=== PATIENT | male | born 1960 | race Caucasian/White ===

== ENCOUNTER → 2016-04-07 | Outpatient (CLI) | payer BC ==
[2016-04-07 08:54] LABS: ABSOLUTE EOSINOPHILS # (AUTO) 0.1 10^3/uL (0.0-0.6); ABSOLUTE LYMPHOCYTES (AUTO) 1.2 10^3/uL (0.5-4.7); ABSOLUTE MONOCYTES (AUTO) 0.4 10^3/uL (0.1-1.4); ABSOLUTE NEUT (AUTO) 4.8 10^3/uL (1.7-8.2); BASOPHILS % (AUTO) 0.6 % (0-2); EOSINOPHILS % (AUTO) 2.1 % (0-6); HEMOGLOBIN 14.2 g/dL (13.5-17.0); HGB HCT DIFFERENCE 0.6; LYMPHOCYTES % (AUTO) 18.1 % (13-45); MEAN CORPUSCULAR HEMOGLOBIN 27.4 pg (27.0-33.4); MEAN CORPUSCULAR HGB CONC 33.7 g/dL (32.0-36.0); MEAN CORPUSCULAR VOLUME 81 fl (80-97); MONOCYTES % (AUTO) 6.2 % (3-13); RED BLOOD COUNT 5.17 10^6/uL (4.35-5.55); RED CELL DISTRIBUTION WIDTH 15.5 % (11.5-14.0); WHITE BLOOD COUNT 6.6 10^3/uL (4.0-10.5)
[2016-04-07 09:15] LABS: ALANINE AMINOTRANSFERASE 37 U/L (21-72); ALBUMIN 3.8 g/dL (3.5-5.0); ALKALINE PHOSPHATASE 63 U/L (38-126); ANION GAP 10 (5-19); ASPARTATE AMINO TRANSFERASE 30 U/L (17-59); BILIRUBIN,TOTAL 0.5 mg/dL (0.2-1.3); BLOOD UREA NITROGEN 27 mg/dL (7-20); CARBON DIOXIDE 25 mmol/L (22-30); CHLORIDE 100 mmol/L (98-107); CHOLESTEROL 210.62 mg/dL (0-200); CREATININE RESULT 1.15 mg/dL (0.52-1.25); Direct HDL 21 mg/dL (>40); GLUCOSE 257 mg/dL (75-110); POTASSIUM 4.7 mmol/L (3.6-5.0); SODIUM 135.3 mmol/L (137-145); TOTAL PROTEIN 7.8 g/dL (6.3-8.2)
[2016-04-07 09:26] LABS: DIRECT LDL 94 mg/dL (<100)
[2016-04-07 09:39] LABS: TRIGLYCERIDES 748 mg/dL (<150)
== END ==
LOC: OD 08:13
PROVIDERS: ATTEND Physician Assistant
DX: E78.2 Mixed hyperlipidemia (principal); E11.9 Type 2 diabetes mellitus without complications; Z79.899 Other long term (current) drug therapy
CPT/HCPCS: 36415; 80053; 80061; 83036; 84443; 85025

== ENCOUNTER → 2016-04-10 | Outpatient (CLI) | payer BC ==
--- NOTE | 2016-04-11 15:48 | XCELERA REPORT ---
[address] [address] Transthoracic Echocardiogram Report Name: LYNETTE TAYLOR Age: 56 yrs Gender: Male : 1960 Patient Status: Outpatient Patient Location: Study Date: 04/10/2016 08:12 AM Height: 67 in Weight: 288 lb BSA: 2.4 m2 Procedure: A two-dimensional transthoracic echocardiogram with color flow and Doppler was performed. Study Quality: Technically suboptimal. Poor endocardiial defenition and por doppler interrogation. Reason For Study: MURMUR Ordering Physician: MARITA FINK PA-C Performed By: Elaine Parrish Interpretation Summary The left ventricle is normal in size. Probably mild LVH.Probably no regional wall motion abnormality.Cannot assess LV diastolic function. The left atrial size is normal. There is no evidence of mitral valve prolapse. There is no mitral valve stenosis. Probably no MR. There is no aortic valvular vegetation. There is aortic sclerosis without stenosis(Most likely cause of murmur.) There is no LVOT obstruction. No aortic regurgitation is present. There is no tricuspid stenosis. There is a trace amount of tricuspid regurgitation Unable to calculate RVSP due to insufficient TR jet. There is no pericardial effusion. MMode/2D Measurements \T\ Calculations RVDd: 3.1 cm LVIDd: 4.4 cmFS: 30.5 % Ao root diam: 3.7 cm IVSd: 1.3 cm LVIDs: 3.0 cmEDV(Teich): 85.6 ml LVPWd: 1.3 cmESV(Teich): 35.8 ml Ao root area: 10.9 cm2 EF(Teich): 58.1 % LA dimension: 3.9 cm LVOT diam: 2.4 cm LVOT area: 4.5 cm2 Doppler Measurements \T\ Calculations MV E max raghu: MV P1/2t max raghu: Ao V2 max: LV V1 max P.9 cm/sec 126.9 cm/sec 195.5 cm/sec 5.8 mmHg MV A max raghu: MV P1/2t: 67.0 msec Ao max PG: LV V1 max: 120.9 cm/sec MVA(P1/2t): 3.3 cm2 15.3 mmHg 119.9 cm/sec MV E/A: 1.0 MV dec slope: JESSIE(V,D): 2.7 cm2 554.2 cm/sec2 PA V2 max: 91.3 cm/sec PA max P.3 mmHg Left Ventricle The left ventricle is normal in size. Probably mild LVH.Probably no regional wall motion abnormality.Cannot assess LV diastolic function. Right Ventricle The right ventricle is not well visualized secondary to technical limitations. Atria Right atrium not well visualized secondary to technical limitations. The left atrial size is normal. Mitral Valve There is no evidence of mitral valve prolapse. There is no mitral valve stenosis. Probably no MR. Aortic Valve There is no aortic valvular vegetation. There is aortic sclerosis without stenosis(Most likely cause of murmur.). There is no LVOT obstruction. No aortic regurgitation is present. Tricuspid Valve There is no tricuspid stenosis. There is a trace amount of tricuspid regurgitation. Unable to calculate RVSP due to insufficient TR jet. Pulmonic Valve The pulmonic valve is not well visualized. Great Vessels The aortic root is not well visualized. Effusions There is no pericardial effusion. : MARITA FINK PA-C > Louise Renee
== END ==
LOC: SP 07:56
PROVIDERS: ATTEND Physician Assistant
DX: R01.1 Cardiac murmur, unspecified (principal)
CPT/HCPCS: 93306

== ENCOUNTER → 2016-09-03 | Outpatient (CLI) | payer BC ==
[2016-09-03 11:29] LABS: ALANINE AMINOTRANSFERASE 30 U/L (21-72); ALBUMIN 4.1 g/dL (3.5-5.0); ALKALINE PHOSPHATASE 60 U/L (38-126); ANION GAP 11 (5-19); ASPARTATE AMINO TRANSFERASE 20 U/L (17-59); BILIRUBIN,DIRECT 0.3 mg/dL (0.0-0.4); BILIRUBIN,TOTAL 0.6 mg/dL (0.2-1.3); BLOOD UREA NITROGEN 26 mg/dL (7-20); CALCIUM 9.8 mg/dL (8.4-10.2); CARBON DIOXIDE 26 mmol/L (22-30); CHLORIDE 98 mmol/L (98-107); CHOLESTEROL 156.56 mg/dL (0-200); CREATININE RESULT 1.23 mg/dL (0.52-1.25); Direct HDL 21 mg/dL (>40); GLUCOSE 249 mg/dL (75-110); POTASSIUM 5.2 mmol/L (3.6-5.0); SODIUM 134.9 mmol/L (137-145); TOTAL PROTEIN 7.9 g/dL (6.3-8.2); TRIGLYCERIDES 485 mg/dL (<150)
[2016-09-03 11:40] LABS: DIRECT LDL 74 mg/dL (<100)
== END ==
LOC: OD 09:18
PROVIDERS: ATTEND Physician Assistant
DX: E78.2 Mixed hyperlipidemia (principal); E11.9 Type 2 diabetes mellitus without complications
CPT/HCPCS: 36415; 80053; 80061; 83036

== ENCOUNTER → 2016-11-22 | Outpatient (CLI) | payer BC ==
[2016-11-22 18:22] LABS: ANION GAP 11 (5-19); BLOOD UREA NITROGEN 23 mg/dL (7-20); CALCIUM 9.7 mg/dL (8.4-10.2); CARBON DIOXIDE 27 mmol/L (22-30); CHLORIDE 98 mmol/L (98-107); CREATININE RESULT 1.23 mg/dL (0.52-1.25); GLUCOSE 193 mg/dL (75-110); POTASSIUM 4.6 mmol/L (3.6-5.0); SODIUM 135.7 mmol/L (137-145)
== END ==
LOC: OD 16:56
PROVIDERS: ATTEND Internal Medicine Nephrology
DX: N18.2 Chronic kidney disease, stage 2 (mild) (principal)
CPT/HCPCS: 36415; 80048

== ENCOUNTER → 2017-01-25 | Outpatient (CLI) | payer BC ==
[2017-01-25 10:19] LABS: CHOLESTEROL 135.97 mg/dL (0-200); Direct HDL 21 mg/dL (>40); TRIGLYCERIDES 394 mg/dL (<150)
[2017-01-25 10:29] LABS: DIRECT LDL 68 mg/dL (<100)
[2017-01-25 10:33] LABS: VLDL CHOLESTEROL 78.8 mg/dL (10-31)
== END ==
LOC: OD 08:17
PROVIDERS: ATTEND Physician Assistant
DX: E11.9 Type 2 diabetes mellitus without complications (principal); E78.2 Mixed hyperlipidemia
CPT/HCPCS: 36415; 80061; 83036

== ENCOUNTER 2017-04-18 07:12 | Emergency (ER) | payer BC ==
[2017-04-18 07:23] VITALS: BP 143/83
--- NOTE | 2017-04-18 08:59 | ER Document Report ---
ED ENT - General Chief Complaint: Ear Injury Stated Complaint: HEARING LOSS Time Seen by Provider: 04/18/17 07:30 Mode of Arrival: Ambulatory Information source: Patient Notes: Patient is a 57-year-old male who presents to the ER today for feeling like his right ear is clogged. Patient has a history of getting wax in both ears and having them build up to the point where he cannot hear, he states he has been using Debrox eardrops at home but they have not been helping. Patient states that only once before as he ever had to have wax removed from his ears by someone other than himself. He denies any injury, drainage, fever, chills or pain. TRAVEL OUTSIDE OF THE [place] IN LAST 30 DAYS: No - Related Data Allergies/Adverse Reactions: ampicillin Allergy (Verified 04/18/17 07:15) Past Medical History - General Information source: Patient - Social History Smoking Status: Never Smoker Chew tobacco use (# tins/day): No Frequency of alcohol use: None Drug Abuse: None Family History: Reviewed & Not Pertinent Patient has suicidal ideation: No Patient has homicidal ideation: No - Past Medical History Cardiac Medical History: Reports: Hx Hypertension Renal/ Medical History: Denies: Hx Peritoneal Dialysis Past Surgical History: Reports: Hx Tonsillectomy Review of Systems - Review of Systems Constitutional: No symptoms reported EENT: See HPI Cardiovascular: No symptoms reported Respiratory: No symptoms reported Gastrointestinal: No symptoms reported Genitourinary: No symptoms reported Male Genitourinary: No symptoms reported Musculoskeletal: No symptoms reported Skin: No symptoms reported Hematologic/Lymphatic: No symptoms reported Neurological/Psychological: No symptoms reported Physical Exam - Vital signs Vitals: Temp Pulse Resp BP Pulse Ox 97.6 F 69 18 143/83 H 96 04/18/17 07:23 04/18/17 07:23 04/18/17 07:23 04/18/17 07:23 04/18/17 07:23 - Notes Notes: PHYSICAL EXAMINATION: GENERAL: Well-appearing and in no acute distress. HEAD: Atraumatic, normocephalic. EYES: Pupils equal round and reactive to light, extraocular movements intact, sclera anicteric, conjunctiva are normal. ENT: Ear canals with cerumen bilaterally, cannot visualize either TM, no tenderness to otoscope exam NECK: Normal range of motion, supple without lymphadenopathy LUNGS: CTAB and equal. No wheezes rales or rhonchi. HEART: Regular rate and rhythm without murmurs EXTREMITIES: Normal range of motion, no pitting edema. No cyanosis. NEUROLOGICAL: Cranial nerves grossly intact. Normal sensory/motor exams. PSYCH: Normal mood, normal affect. SKIN: Warm, Dry, normal turgor, no rashes or lesions noted Course - Re-evaluation Re-evalutation: 04/18/17 08:57 Cerumen impaction was relieved with irrigation and peroxide by nurse. Patient states that he feels better and can hear out of the right ear a little more. I will give him a referral for ear nose and throat in case he needs more wax removed. - Vital Signs Vital signs: Temp Pulse Resp BP Pulse Ox 97.6 F 69 18 143/83 H 96 04/18/17 07:23 04/18/17 07:23 04/18/17 07:23 04/18/17 07:23 04/18/17 07:23 Discharge - Discharge Clinical Impression: Impacted cerumen, right ear Condition: Stable Disposition: HOME, SELF-CARE Additional Instructions: [facility] Address: [address] [place] [id number] phone: [phone] Return immediately for any new or worsening symptoms. Follow up with primary care provider, call tomorrow to make followup appointment. Referrals: MARITA FINK PA-C [Primary Care Provider] - Follow up as needed
== END 2017-04-18 09:22 | disposition home or self-care (01) ==
LOC: ER 07:12
DX: H61.23 Impacted cerumen, bilateral (principal); Z88.0 Allergy status to penicillin; I10 Essential (primary) hypertension
CPT/HCPCS: 99283

== ENCOUNTER → 2020-03-14 | Outpatient (CLI) | payer BC ==
[~2020-03-14] MED LIST: COVID-19 VACCINE (PFIZER)/PF 30 MCG/0.3 ML VIAL IM ONE; EPINEPHRINE INJ/PF 1 MG/1 ML AMPULE IM PRN
== END ==
LOC: EMPHEALTH 14:07
PROVIDERS: ATTEND Internal Medicine
DX: Z23 Encounter for immunization (principal)
CPT/HCPCS: 91300